=== PATIENT | male | born 1970 | race Caucasian/White ===

== ENCOUNTER 2016-11-28 19:47 | Emergency (ER) | payer OTHER ==
[2016-11-28 19:54] VITALS: BP 154/111; PULSE 88; TEMP 99; BMI 33.1
--- NOTE | 2016-11-28 20:07 | PDOC ---
History of Present Illness - General History Source: Patient Exam Limitations: No Limitations - History of Present Illness Initial Comments: 11/28/16 20:25 A portion of this note was documented by scribe services under my direction. I have reviewed the details of the note, within reason, and agree with the documentation. The case summary and management plan written by me. Assessment and plan: This is a 46-year-old male who comes in with a friend that is the vehicle operator technician. Patient has had a cyst under his left axilla times one week. Patient is been putting some sort of antibiotic lotion on it. Patient denies any pain or discomfort as a result of the cyst. Patient was concerned because he's had it a week and is not getting any better and his primary care doctor is out of town for another week. Patient denies any other associated symptoms. Patient denies history of similar problems in the past. Patient had no tenderness on palpation there was no drainable collection, there was no surrounding erythema or associated lymph adenopathy. Patient was told to do hot soaks and was started on some Bactrim and told to follow-up with his primary care doctor when his primary care doctor's returns in one week if he still has any associated symptoms. <Mildred Celestin I - Last Filed: 11/28/16 20:25> - General History Source: Patient, Friend Exam Limitations: No Limitations - History of Present Illness Initial Comments: 11/28/16 20:42 The patient is a 46 year old male, with no significant past medical history, who presents to the emergency department with a cyst under his left axilla for the past 6 days. The patient denies any pain and states that he has been putting an antibiotic ointment on it with without relief of symptoms. The patients PCP is out of town so the patient decided to come to the ED for further evaluation. The patients friend is at the bedside, who is translating. PAST MEDICAL HISTORY: No significant history. PAST SURGICAL HISTORY: No significant history. FAMILY HISTORY: No pertinent history. SOCIAL HISTORY: Patient lives with family and is employed. MEDICATIONS: Reviewed. ALLERGIES: As per nursing notes. Adult ROS General: No fevers or chills, no weakness, no weight loss HEENT: No change in vision. No sore throat. No ear pain CardioVascular: No chest pain or shortness of breath Respiratory: No cough, or wheezing. Gastrointestinal: No nausea, vomiting, diarrhea or constipation. No rectal bleeding Genitourinary: No dysuria, hematuria, or frequency Musculoskeletal: No joint or muscle pain or swelling Neurologic: No headache, vertigo, dizziness or loss of consciousness Psychiatric: No depression Skin: +Cyst under left axilla. No rashes or easy bruising Endocrine: No increased thirst or abnormal weight change Allergic: No skin or latex allergy All other systems reviewed and normal. Basic Adult PE GENERAL: The patient is awake, alert, and fully oriented, in no acute distress. HEAD: Normal with no signs of trauma. EYES: Pupils equal, round and reactive to light, extraocular movements intact, sclera anicteric, conjunctiva clear. EXTREMITIES: Normal range of motion, no edema. NEUROLOGICAL: Normal speech, normal gait. PSYCH: Normal mood, normal affect. SKIN: Left axilla, there is a palpable cystic structure that is nontender to palpation. Structure is mobile. There is no associated erythema or increase in warmth. There is no discharge. There is no associated lymphadenopathy. Warm, dry , normal turgor, no rashes or lesions noted. <Carolina Bonilla - Last Filed: 11/28/16 20:42> - General Chief Complaint: Pain, Acute Stated Complaint: CYST UNDER LEFT ARM X ONE WEEK Time Seen by Provider: 11/28/16 20:06 Past History - Past Medical History Asthma: No Cardiac Disorders: No COPD: No Diabetes: No GI Disorders: No Disorders: No HTN: No Kidney Stones: No Suicide Attempt (Hx): No Seizures: No - Surgical History Abdominal Surgery: No Appendectomy: No Cardiac Surgery: No Cholecystectomy: No Lung Surgery: No Neurologic Surgery: No Orthopedic Surgery: No - Reproductive History Testicular Surgery: No - Psycho/Social/Smoking Cessation Hx Anxiety: Yes Suicidal Ideation: No Smoking History: Current every day smoker Have you smoked in the past 12 months: Yes Number of Cigarettes Smoked Daily: 20 Information on smoking cessation initiated: Yes 'Breaking Loose' booklet given: 11/28/16 Hx Alcohol Use: Yes Drug/Substance Use Hx: No Substance Use Type: None Hx Substance Use Treatment: No <Mildred Celestin I - Last Filed: 11/28/16 20:25> <Carolina Bonilla - Last Filed: 11/28/16 20:42> - Past Medical History Allergies/Adverse Reactions: Allergies Allergy/AdvReac Type Severity Reaction Status Date / Time No Known Allergies Allergy Verified 11/28/16 19:48 Home Medications: Ambulatory Orders Sulfamethoxazole/Trimethoprim [Bactrim DS -] 1 tab PO BID #28 tablet 11/28/16 *Physical Exam - Vital Signs Last Vital Signs Temp Pulse Resp BP Pulse Ox 99 F 88 16 154/111 98 11/28/16 19:50 11/28/16 19:50 11/28/16 19:50 11/28/16 19:50 11/28/16 19:50 <Mildred Celestin I - Last Filed: 11/28/16 20:25> - Vital Signs Last Vital Signs Temp Pulse Resp BP Pulse Ox 99 F 88 16 154/111 98 11/28/16 19:50 11/28/16 19:50 11/28/16 19:50 11/28/16 19:50 11/28/16 19:50 <Carolina Bonilla - Last Filed: 11/28/16 20:42> *DC/Admit/Observation/Transfer - Discharge Dispostion Admit: No <Mildred Cleestin I - Last Filed: 11/28/16 20:25> - Attestations Scribe Attestion: 11/28/16 20:09 Documentation prepared by Carolina Bonilla, acting as medical collections specialist for Mildred Celestin MD. <Carolina Bonilla - Last Filed: 11/28/16 20:42> Diagnosis at time of Disposition: Left axillary hidradenitis - Discharge Dispostion Disposition: HOME Condition at time of disposition: Stable - Prescriptions Prescriptions: Sulfamethoxazole/Trimethoprim [Bactrim DS -] 1 tab PO BID #28 tablet - Patient Instructions Additional Instructions: Take Bactrim 1 tablet twice a day for 7 days. Apply hot soaks to the area 3 times a day 15 minutes at a time for the next 4-5 days or until the symptoms have completely resolved. Return to the emergency department immediately with ANY new, persistent or worsening symptoms. Continue any medications as previously prescribed by your physician. You should follow up with your primary doctor as soon as possible regarding today's emergency department visit. . Please make sure your doctor reviews the results of your emergency evaluation. Thank you for coming to the Emergency Department today for your care. It was a pleasure to see you today. Please note that your evaluation is INCOMPLETE until you follow-up with your doctor.
[2016-11-28] MEDS ORDERED: SULFAMETHOXAZOLE/TRIMETHOPRIM 800MG/160MG D.S. TABLET PO ONE (20:24)
[2016-11-28] MEDS ORDERED: SULFAMETHOXAZOLE/TRIMETHOPRIM 800MG/160MG D.S. TABLET ONE (20:27)
== END 2016-11-28 20:32 | disposition home or self-care (01) ==
LOC: FER 19:47
DX: L73.2 Hidradenitis suppurativa (principal); F17.210 Nicotine dependence, cigarettes, uncomplicated
CPT/HCPCS: 99281-25